=== PATIENT | male | born 2000 | race Caucasian/White ===

== ENCOUNTER 2021-10-15 15:39 | Emergency (ER) | payer OTHER, SELFPAY ==
--- NOTE | 2021-10-15 15:45 | ED.URI ---
HPI - URI/Sore Throat General Chief Complaint: Upper Respiratory Infection Stated Complaint: Cough, sore throat, runny nose, congestion Time Seen by Provider: 10/15/21 15:45 Source: patient and RN notes reviewed History of Present Illness HPI Narrative: Patient is a 20-year-old male who presents the urgent care with complaints of cough, sore throat, runny nose and congestion for 2 days. Patient denies of any known Covid exposure. States that he just thought it was allergies . Patient did have a fever on Friday but has since then not ran any fevers. Denies of chills and sweats. States he has been taking Tylenol and ibuprofen. Patient states that he has had the Covid vaccine. Patient states that he is just here for a work note because he took off work the last couple days . No other acute complaints. No acute distress noted. Patient aware of the plan of care. Some parts of this dictation were generated by voice recognition software and may contain typographical and/or grammatical inaccuracies. Related Data Allergies Allergy/AdvReac Type Severity Reaction Status Date / Time No Known Allergies Allergy Unverified 12/05/20 07:40 Review of Systems Review of Systems: CONSTITUTIONAL: Denies fever, chills, or sweats. EYES: Denies visual changes, redness, or discharge. ENT: Reports of nasal congestion, rhinorrhea, postnasal drainage and sore throat CARDIOVASCULAR: Denies chest pain, palpitations, or edema. RESPIRATORY: Reports of cough without dyspnea GASTROINTESTINAL: Denies abdominal pain, nausea, vomiting, or diarrhea. GENITOURINARY: Denies dysuria or hematuria. SKIN: Denies rash or itching. MUSCULOSKELETAL: Denies back pain, joint pain, or myalgia. NEUROLOGIC: Denies headache, numbness, or weakness. All other systems reviewed are negative, except as documented in HPI. [facility] Past Medical History Medical History Chronic tonsillitis History of fracture of radius Ulna, multiple fractures of proximal end Surgical History Surgical History H/O adenoidectomy Hx of tonsillectomy Family History Family History Grandparent Hypertension Family history of cardiovascular disease Family history of malignant neoplasm of breast Social History Social History (Updated 12/05/20 @ 07:41 by Nellie Garcia) Social History: Single Smoking status: Smoker, status unknown (Pt vapes) Tobacco type: e-cigarettes/vaping Second hand tobacco smoke exposure: Yes Alcohol intake: current Drinks per week: 12 Substance use: never Substance use type: does not use Additional occupation/education comments: Pt also works. Gender identity (if verbalized by the patient): Male Sexual Orientation (if Verbalized by the Patient): Straight or Heterosexual Comments At the time of my signature, I reviewed and agree with the nursing past medical, surgical, social, and family history. There is no relevant family history pertinent to the patient complaint. Exam Narrative: GENERAL: This is a well-nourished, well-developed patient, in no apparent distress. HEAD: normocephalic, atraumatic. EYES: PERRL. Sclera clear/white. Vision is grossly intact. EARS: External ears normal, auditory canals clear and without drainage, TMs normal without perforation. Hearing grossly intact. NOSE: External nose normal with no obvious nasal discharge, nares without redness, clear to yellow rhinorrhea. THROAT: Mucous membranes moist, posterior pharynx clear. Moderate postnasal drainage NECK: Neck supple, non-tender without lymphadenopathy, masses or thyromegaly. CARDIOVASCULAR: Regular rate and rhythm without murmurs, gallops, or rubs. RESPIRATORY: Clear to auscultation. Breath sounds equal bilaterally. No wheezes, rales, or rhonchi. SKIN: warm, intact with no suspicious lesions or rash, good texture
[2021-10-15 15:51] VITALS: BP 122/37; PULSE 68; RESP 16; TEMP 36.8; O2SAT 98
== END 2021-10-15 16:10 | disposition home or self-care (01) ==
PROVIDERS: Emergency Provider Nurse Practitioner Family
DX: J06.9 Acute upper respiratory infection, unspecified (principal); F17.290 Nicotine dependence, other tobacco product, uncomplicated
CPT/HCPCS: 87804; 99213; G0463

== ENCOUNTER 2022-11-19 19:14 | Emergency (ER) | payer OTHER, SELFPAY ==
[2022-11-19 19:27] VITALS: BP 112/71; PULSE 61; RESP 16; TEMP 36.9; O2SAT 99
--- NOTE | 2022-11-19 19:44 | ED.EAR ---
HPI - Ear Problem General Chief complaint: Ear Stated complaint: EARACHE Time Seen by Provider: 11/19/22 19:45 Source: patient Mode of arrival: ambulatory History of Present Illness HPI Narrative: 22-year-old male presents with complaint of pain and decreased hearing to right ear since this morning. Patient reports history of wax impaction. Has been using Debrox strep sore several days All systems reviewed and negative except as noted above. Related Data Allergies Allergy/AdvReac Type Severity Reaction Status Date / Time No Known Allergies Allergy Unverified 11/19/22 19:24 Review of Systems Review of Systems: CONSTITUTIONAL: Denies fever, chills, or sweats. EYES: Denies visual changes, redness, or discharge. ENT: Denies rhinorrhea, congestion, sore throat. Reports right ear pain and decreased hearing. CARDIOVASCULAR: Denies chest pain, palpitations, or edema. RESPIRATORY: Denies cough or dyspnea. GASTROINTESTINAL: Denies abdominal pain, nausea, vomiting, or diarrhea. GENITOURINARY: Denies dysuria or hematuria. SKIN: Denies rash or itching. MUSCULOSKELETAL: Denies back pain, joint pain, or myalgia. NEUROLOGIC: Denies headache, numbness, or weakness. PSYCHIATRIC: Denies anxiety or depression. All other systems reviewed are negative, except as documented in HPI. [facility] Past Medical History Medical History Chronic tonsillitis History of fracture of radius Ulna, multiple fractures of proximal end Surgical History Surgical History H/O adenoidectomy Hx of tonsillectomy Family History Family History Grandparent Hypertension Family history of cardiovascular disease Family history of malignant neoplasm of breast Social History Social History (Updated 12/05/20 @ 07:41 by Nellie Garcia) Social History: Single Smoking status: Smoker, status unknown (Pt vapes) Tobacco type: e-cigarettes/vaping Second hand tobacco smoke exposure: Yes Alcohol intake: current Drinks per week: 12 Substance use: never Substance use type: does not use Living arrangements: with roommate(s) Occupation/Education: student Additional occupation/education comments: Pt also works. Gender identity (if verbalized by the patient): Male Sexual Orientation (if Verbalized by the Patient): Straight or Heterosexual Comments At time of signature, agree with nursing past medical, surgical, social and family history. There is no relevant family history pertinent to the presenting complaint. Exam Narrative: GENERAL: This is a well-nourished, well-developed patient, in no apparent distress. HEAD: normocephalic, atraumatic. EYES: PERRL. Sclera clear/white. Vision is grossly intact. EARS: External ears normal, left ear canal and TM is normal. Right ear canal impacted with wax. Irrigated and right TM is normal. NOSE: External nose normal with no obvious nasal discharge, nares without redness, no rhinorrhea. NECK: Neck supple, non-tender without lymphadenopathy, masses or thyromegaly. CARDIOVASCULAR: Regular rate and rhythm without murmurs, gallops, or rubs. RESPIRATORY: Clear to auscultation. Breath sounds equal bilaterally. No wheezes, rales, or rhonchi. SKIN: warm, Dry, intact with no suspicious lesions or rash, good texture and turgor. NEURO: awake, alert, and oriented to person, place and time. There were no obvious focal neurologic abnormalities. EXTREMITIES: No joint tenderness, effusion, or edema noted. Course Course Level of Care: Express Care Visit Vital Signs Vital signs: Vital Signs Temperature 36.9 C 11/19/22 19:27 Pulse Rate 61 11/19/22 19:27 Respiratory Rate 16 11/19/22 19:27 Blood Pressure 112/71 11/19/22 19:27 Pulse Oximetry 99 11/19/22 19:27 Temperature 36.9 C 11/19/22 19:27 Pulse Rate 61 11/19/22 19:27 Respiratory R
== END 2022-11-19 19:59 | disposition home or self-care (01) ==
PROVIDERS: Emergency Provider Nurse Practitioner Family; PCP Family Medicine
DX: H61.21 Impacted cerumen, right ear (principal); F17.290 Nicotine dependence, other tobacco product, uncomplicated
CPT/HCPCS: 69210; 99213; G0463

== ENCOUNTER 2023-03-28 10:22 | Emergency (ER) | payer OTHER, SELFPAY ==
--- NOTE | ~2023-03-28 | XR_ITS ---
EXAMINATION: XR chest 2V DATE: 03/28/2023 11:17 INDICATION: Cough and shortness of breath TECHNIQUE: PA and lateral views of the chest are obtained. COMPARISON: 08/22/2007 FINDINGS: The lungs are free of acute opacities. No pleural effusion or pneumothorax. The cardiomedia stinal silhouette is normal. The visualized bones and soft tissues are unremarkable. IMPRESSION: 1. No acute cardiopulmonary abnormality. Reviewed, dictated and finalized at location A.
--- NOTE | 2023-03-28 10:29 | ED.URI ---
HPI - URI/Sore Throat General Chief Complaint: Upper Respiratory Infection Stated Complaint: cough,sore throat,shortness of breath Time Seen by Provider: 03/28/23 10:29 Source: patient Mode of arrival: ambulatory Limitations: no limitations History of Present Illness HPI Narrative: Patient is a 22-year-old male who presents with worsening cough and shortness of breath with working out over the last week or 2. Patient denies any fever, chills, congestion, ear pain, sore throat. Patient states cough is worse when lying down and after eating large meals. States his diet consists of spicy food, fried food and alcohol. Denies any burning and throat. Is an everyday vape user. Denies any history of asthma, bronchitis or pneumonia. States he has occasional allergies but takes [id number] medicine when needed. Patient also concerned he is developing asthma Related Data Allergies Allergy/AdvReac Type Severity Reaction Status Date / Time No Known Allergies Allergy Verified 03/28/23 10:42 Review of Systems Review of Systems: All systems reviewed & are unremarkable except as noted in HPI and below Constitutional: Constitutional: Denies body ache(s), Denies chills, Denies fatigue, Denies fever(s), Denies headache(s), Denies malaise and Denies weakness Eyes: Eyes: Denies blurry vision, Denies itchy eyes and Denies loss of vision ENT: Denies otalgia, Denies headache(s), Denies nasal congestion, Denies sinus pain and Denies sore throat Cardiovascular: Cardiovascular: Denies chest pain, Denies irregular heart rhythm and Denies dyspnea Respiratory: Respiratory: Reports cough and Reports dyspnea on exertion Gastrointestinal: Gastrointestinal: Denies abdominal pain, Denies diarrhea, Denies nausea and Denies vomiting Musculoskeletal: Musculoskeletal: Denies back pain, Denies myalgias and Denies arthralgias Integumentary/Breasts: Skin/Breast: Denies pruritus and Denies rash Neurologic: Denies headache(s), Denies loss of vision and Denies weakness Psychiatric: Psychiatric: Reports no additional psychiatric complaints Endocrine: Endocrine: Denies fatigue Allergic/Immunologic: Allergic/Immunologic: Denies itchy eyes PMFSH Past Medical History Medical History Chronic tonsillitis History of fracture of radius Ulna, multiple fractures of proximal end Surgical History Surgical History H/O adenoidectomy Hx of tonsillectomy Family History Family History Grandparent Hypertension Family history of cardiovascular disease Family history of malignant neoplasm of breast Social History Social History (Updated 12/05/20 @ 07:41 by Nellie Garcia) Social History: Single Smoking status: Smoker, status unknown (Pt vapes) Tobacco type: e-cigarettes/vaping Second hand tobacco smoke exposure: Yes Alcohol intake: current Drinks per week: 12 Substance use: never Substance use type: does not use Living arrangements: with roommate(s) Occupation/Education: student Additional occupation/education comments: Pt also works. Gender identity (if verbalized by the patient): Male Sexual Orientation (if Verbalized by the Patient): Straight or Heterosexual Comments At time of signature, agree with nursing past medical, surgical, social and family history. There is no relevant family history pertinent to the presenting complaint. Exam Const: General: cooperative, healthy appearing, comfortable, no acute distress and well nourished Nutritional Appearance: well nourished Orientation/consciousness: patient oriented x3 Limitations: no limitations HENMT: Head: normal to inspection, normocephalic and atraumatic Ears: hearing grossly normal bilaterally, external ears normal, TM's normal bilaterally, EAC's normal and no periauricular adenopathy Face/Nose/Sinus: Normal ext
[2023-03-28 10:41] VITALS: BP 123/83; PULSE 57; RESP 16; TEMP 37.1; O2SAT 100
== END 2023-03-28 11:36 | disposition home or self-care (01) ==
PROVIDERS: Emergency Provider Nurse Practitioner Family; PCP Family Medicine
DX: K21.9 Gastro-esophageal reflux disease without esophagitis (principal); F17.290 Nicotine dependence, other tobacco product, uncomplicated
CPT/HCPCS: 71046; 99213; G0463

== ENCOUNTER 2023-07-19 14:09 | Emergency (ER) | payer OTHER, SELFPAY ==
[2023-07-19 14:23] VITALS: BP 121/68; PULSE 76; RESP 16; TEMP 37.1; O2SAT 98
--- NOTE | 2023-07-19 14:31 | ED.URI ---
HPI - URI/Sore Throat General Chief Complaint: Upper Respiratory Infection Stated Complaint: SINUS CONGESTION/HEADACHE Source: patient and RN notes reviewed Mode of arrival: ambulatory Limitations: no limitations History of Present Illness HPI Narrative: 22-year-old male presented for complaint of persistent seasonal allergy symptoms for over one week. Reports sinus congestion/pressure, and headache. He states he has been taking his antihistamine and using an unknown nasal spray without significant relief. Endorses sinus congestion is getting worse, causing him to wake at night unable to breathe through his nose. He denies shortness of breath, wheezing, nausea, vomiting, diarrhea, fevers chills. MD elicited complaint: cough Related Data Allergies Allergy/AdvReac Type Severity Reaction Status Date / Time No Known Allergies Allergy Verified 07/19/23 14:23 Review of Systems Review of Systems: CONSTITUTIONAL: Denies malaise, chills, sweats, fever EYES: Denies visual changes, redness, or discharge ENT: Reports rhinorrhea, congestion, sinus pain, denies otalgia, sore throat CARDIOVASCULAR: Denies chest pain, palpitations, edema RESPIRATORY: Denies dyspnea GASTROINTESTINAL: Denies abdominal pain, nausea, vomiting, diarrhea SKIN: Denies rash or itching MUSCULOSKELETAL: Denies myalgia PMFSH Past Medical History Medical History Chronic tonsillitis History of fracture of radius Ulna, multiple fractures of proximal end Surgical History Surgical History H/O adenoidectomy Hx of tonsillectomy Family History Family History Grandparent Hypertension Family history of cardiovascular disease Family history of malignant neoplasm of breast Social History Social History Social History: Single Smoking status: Smoker, status unknown (Pt vapes) Tobacco type: e-cigarettes/vaping Second hand tobacco smoke exposure: Yes Alcohol intake: current Drinks per week: 12 Substance use: never Substance use type: does not use Living arrangements: with roommate(s) Occupation/Education: student Additional occupation/education comments: Pt also works. Gender identity (if verbalized by the patient): Male Sexual Orientation (if Verbalized by the Patient): Straight or Heterosexual Exam Narrative: GENERAL: well-appearing, nontoxic no acute distress. HEAD: Normocephalic EYES: PERRLA, conjunctivae clear ENT: Mucous membranes moist. sinus congestion. TM pearly zaidi with dull light reflex bilaterally; no tragal tenderness. Oropharynx erythematous without lesions or exudate, tonsils absent. no drooling, no hoarseness, no trismus, uvula midline. No tripod positioning, muffled voice, soft palate or pharyngeal wall bulging NECK: Supple. No lymphadenopathy CHEST: Clear to auscultation, breath sounds equal. HEART: Regular rate and rhythm. No murmur heard. SKIN: Warm, dry, no rash. NEURO: Alert and oriented x3. PSYCH: Normal mood and affect Course Course Emergency Course: Patient is aware of diagnosis, understands and agrees to treatment plan. Anticipatory guidance given. Patient agrees to follow-up as directed and is aware of reasons to seek care at the emergency department. Portions of this record may have been created with voice recognition software Level of Care: Express Care Visit Vital Signs Vital signs: Vital Signs Temperature 98.7 F 07/19/23 14:23 Pulse Rate 76 07/19/23 14:23 Respiratory Rate 16 07/19/23 14:23 Blood Pressure 121/68 07/19/23 14:23 Pulse Oximetry 98 07/19/23 14:23 Temperature 98.7 F 07/19/23 14:23 Pulse Rate 76 07/19/23 14:23 Respiratory Rate 16 07/19/23 14:23 Blood Pressure 121/68 07/19/23 14:23 Pulse Oximetry 98 07/19/23 14:2
== END 2023-07-19 14:50 | disposition home or self-care (01) ==
PROVIDERS: Emergency Provider Nurse Practitioner Family; PCP Family Medicine
DX: J06.9 Acute upper respiratory infection, unspecified (principal); F17.290 Nicotine dependence, other tobacco product, uncomplicated
CPT/HCPCS: 99213; G0463

== ENCOUNTER 2024-05-21 19:02 | Emergency (ER) | payer OTHER, SELFPAY ==
[2024-05-21 19:09] VITALS: BP 113/69; PULSE 58; RESP 18; TEMP 37; O2SAT 100
--- NOTE | 2024-05-21 19:27 | ED.EAR ---
HPI - Ear Problem General Chief complaint: Ear Stated complaint: EAR CLOGGED Time Seen by Provider: 05/21/24 19:12 Source: patient Mode of arrival: ambulatory Limitations: no limitations History of Present Illness HPI Narrative: Patient presents today with right ear clogging and decreased hearing. Denies pain. Reports that he has been flushing his ear with peroxide and instilling with peroxide in letting it sit for period of time before flushing water. He has done this several times today without relief of symptoms. States he has a cerumen impaction usually once per year. Denies any additional symptoms. Related Data Allergies Allergy/AdvReac Type Severity Reaction Status Date / Time No Known Allergies Allergy Verified 05/21/24 19:18 Review of Systems Review of Systems: CONSTITUTIONAL: Denies body aches, fever, chills, or sweats. EYES: Denies visual changes, redness, or discharge. ENT: Denies rhinorrhea, congestion, sore throat. + right ear clogging and decreased hearing CARDIOVASCULAR: Denies chest pain, palpitations, or edema. RESPIRATORY: Denies cough or dyspnea. GASTROINTESTINAL: Denies abdominal pain, nausea, vomiting, or diarrhea. GENITOURINARY: Denies dysuria or hematuria. SKIN: Denies rash, itching, or wounds. MUSCULOSKELETAL: Denies back pain, joint pain, or myalgia. NEUROLOGIC: Denies headache, numbness, tingling, or weakness. PSYCH: Denies depression or anxiety. [facility] Past Medical History Medical History Chronic tonsillitis History of fracture of radius Ulna, multiple fractures of proximal end Surgical History Surgical History H/O adenoidectomy Hx of tonsillectomy Family History Family History Grandparent Hypertension Family history of cardiovascular disease Family history of malignant neoplasm of breast Social History Social History Social History: Single Smoking status: Smoker, status unknown (Pt vapes) Tobacco type: e-cigarettes/vaping Second hand tobacco smoke exposure: Yes Alcohol intake: current Drinks per week: 12 Substance use: never Substance use type: does not use Living arrangements: with roommate(s) Occupation/Education: student Additional occupation/education comments: Pt also works. Gender identity (if verbalized by the patient): Male Sexual Orientation (if Verbalized by the Patient): Straight or Heterosexual Comments At time of signature, I have reviewed and agree with nursing past medical, surgical, social and family history unless otherwise noted. Please see nursing chart for further information. There is no relevant family history pertinent to the presenting complaint Exam Narrative: GENERAL: Well-appearing, well-nourished, and in no acute distress. HEAD: Normocephalic, atraumatic. EYES: EOMI. No redness or drainage. Conjunctivae normal. ENT: Mucous membranes pink and moist. Right cerumen impaction. Canal appears slightly irritated without edema. Left ear normal NECK: Normal AROM. CHEST: No respiratory distress. EXTREMITIES: Normal range of motion. No edema. SKIN: Warm, dry, no rash. Capillary refill normal. Normal skin turgor. NEURO: No focal deficits. Alert and oriented x3. Gait steady. PSYCH: Normal affect. No signs of depression or anxiety. Course Course Level of Care: Express Care Visit Vital Signs Vital signs: Vital Signs Temperature 98.6 F 05/21/24 19:09 Pulse Rate 58 L 05/21/24 19:09 Respiratory Rate 18 05/21/24 19:09 Blood Pressure 113/69 05/21/24 19:09 Pulse Oximetry 100 05/21/24 19:09 Oxygen Delivery Room Air 05/21/24 19:09 Temperature 98.6 F 05/21/24 19:09 Pulse Rate 58 L 05/21/24 19:09 Respiratory Rate 18 05/21/24 19:09 Blood Pres
== END 2024-05-21 19:31 | disposition home or self-care (01) ==
PROVIDERS: Emergency Provider Nurse Practitioner; PCP Family Medicine
DX: H61.21 Impacted cerumen, right ear (principal); F17.290 Nicotine dependence, other tobacco product, uncomplicated
CPT/HCPCS: 69209; 99213; G0463

== ENCOUNTER 2024-12-11 10:06 | Emergency (ER) | payer SELFPAY ==
[2024-12-11 10:27] VITALS: BP 135/56; PULSE 74; RESP 16; TEMP 36.6; O2SAT 100
--- NOTE | 2024-12-11 10:33 | ED.SKABFB ---
HPI - Skin/Abscess/Foreign Bdy General Chief complaint: Skin/Abscess/Foreign Body Stated complaint: left foot ingrown toenail Time Seen by Provider: 12/11/24 10:30 Source: patient Mode of arrival: ambulatory Limitations: no limitations History of Present Illness HPI narrative: is a 24-year-old male patient presenting to the clinic today with complaints of a left great toe ingrown toenail infection. He reports his symptoms have been going on for approximately 1 week. He has tried to dig into removed the toenail himself. Area is very red and swollen. Is painful to bear weight. No fever Related Data Allergies Allergy/AdvReac Type Severity Reaction Status Date / Time No Known Allergies Allergy Verified 12/11/24 10:30 Review of Systems Review of Systems: Pertinent positives per HPI. Patient denies any fever, chills, rash, headache, visual changes, dizziness, cough, runny nose, sore throat, shortness of breath, chest pain, palpitations, nausea, vomiting, diarrhea, constipation, abdominal pain, or any urinary issues. [facility] Past Medical History Medical History Ulna, multiple fractures of proximal end History of fracture of radius Chronic tonsillitis Surgical History Surgical History H/O adenoidectomy Hx of tonsillectomy Family History Family History Grandparent Hypertension Family history of cardiovascular disease Family history of malignant neoplasm of breast Social History Social History Social History: Single Smoking status: Smoker, status unknown (Pt vapes) Tobacco type: e-cigarettes/vaping Second hand tobacco smoke exposure: Yes Alcohol intake: current Drinks per week: 12 Substance use: never Substance use type: does not use Living arrangements: with roommate(s) Occupation/Education: student Additional occupation/education comments: Pt also works. Gender identity (if verbalized by the patient): Male Sexual Orientation (if Verbalized by the Patient): Straight or Heterosexual Comments At the time of my signature, I reviewed and agree with the nursing past medical, surgical, social, and family history. There is no relevant family history pertinent to the patient complaint. Exam Narrative: General: Well-developed, well nourished, in no apparent distress Head: Normocephalic, atraumatic. Cardio: Regular rate and rhythm, s1 and s2 normal, no murmur appreciated. Resp: Clear to auscultation bilaterally, no rhonchi, rales, wheezing or rubs. Musculoskeletal: No deformity, redness and swelling noted to the left lateral ingrown toe nail with yellow purulent discharge, tender to palpation with localized erythema and redness, grossly normal range of motion, muscle strength strong and equal, peripheral pulse strong, no edema, no cyanosis, normal gait and station Course Course Emergency Course: Portions of this record may have been created with voice recognition software. Level of Care: Express Care Visit Vital Signs Vital signs: Vital Signs Temperature 36.6 C 12/11/24 10:27 Pulse Rate 74 12/11/24 10:27 Respiratory Rate 16 12/11/24 10:27 Blood Pressure 135/56 L 12/11/24 10:27 Pulse Oximetry 100 12/11/24 10:27 Temperature 36.6 C 12/11/24 10:27 Pulse Rate 74 12/11/24 10:27 Respiratory Rate 16 12/11/24 10:27 Blood Pressure 135/56 L 12/11/24 10:27 Pulse Oximetry 100 12/11/24 10:27 Vital signs reviewed MDM - Skin/Abscess/Foreign Bdy MDM Narrative Medical decision making narrative: At the time of visit patient is resting comfortably on the exam table. Patient appears to be nontoxic. Plan: I suspect patient has an infected ingrown toenail on the left great toe. Prescription for mupirocin cream and Keflex was sent to the pharmacy. Recommend having ingrown toenail removed after infection is resolved. Supportive measures were discussed with the patient and they voiced understanding discharge instructions and agrees to treatment plan. Return precautions reviewed Differential Diagnosis Differential diagnosis: Likely abscess of skin or subcutaneous tissue, cellulitis and other (Infected ingrown toenail) Discharge Plan Discharge Clinical Impression: Ingrowing toenail with infection Patient Disposition: Home, Self-Care Condition: Stable Instructions: Antibiotic Form, Ingrown Nail (ED) Additional Instructions: Take Keflex as prescribed Apply mupirocin cream to the affected area twice daily as prescribed Epson salt soaks in warm water-3 to 4 times a day Follow-up with music researcher or PCP after infection resolves to get ingrown toenail removed Patient Language: Indonesian Prescriptions: New cephalexin 500 mg capsule 500 mg PO Q8H 7 Days Qty: 21 0RF mupirocin [Centany] 2 % ointment 1 applic topical BID 7 Days Qty: 22 0RF Follow-up/Referrals: PHYSICIAN,REGISTERED RADIOGRAPHER [Primary Care Provider] - Time of Disposition: 10:35 Quality NIHSS Nursing Documentation ED NIHSS nursing documentation: reviewed/agree
== END 2024-12-11 10:40 | disposition home or self-care (01) ==
PROVIDERS: Emergency Provider Nurse Practitioner Family
DX: L60.0 Ingrowing nail (principal); F17.290 Nicotine dependence, other tobacco product, uncomplicated
CPT/HCPCS: 99213; G0463